=== PATIENT | male | born 1980 | race Caucasian/White ===

== ENCOUNTER 2017-11-30 15:36 | Emergency (ER) | payer OTHER ==
[~2017-11-30] VITALS: Ht 170.2 cm; Wt 75.3 kg
[~2017-11-30 15:36] MED LIST: NOHOMEMEDS
[2017-11-30] MEDS ORDERED: KEFLEX500 MG PO (17:54)
[2017-11-30] MEDS ORDERED: PERCOCET 5/31 TABLET PO (17:54)
[2017-11-30 18:09] VITALS: BP 107/69
== END 2017-11-30 18:11 | disposition home or self-care (01) ==
LOC: EME 15:36
PROC: 0HQFXZZ Repair Right Hand Skin, External Approach (ICD-10-PCS; principal; 2017-11-30)
DX: S61.310A Laceration without foreign body of right index finger with damage to nail, initial encounter (principal); S61.011A Laceration without foreign body of right thumb without damage to nail, initial encounter; S61.212A Laceration without foreign body of right middle finger without damage to nail, initial encounter; W31.2XXA Contact with powered woodworking and forming machines, initial encounter; Y99.0 Civilian activity done for income or pay; Z87.891 Personal history of nicotine dependence
CPT/HCPCS: 73130; 99281; 99284; J2270; J2405; J3010